=== PATIENT | female | born 1945 | race Caucasian/White ===

== ENCOUNTER 2016-12-16 08:39 | Emergency (ER) | payer MEDICARE, BC ==
--- NOTE | ~2016-12-16 | CR126 ---
[facility] A Service of [facility] RADIOLOGY TEXT RESULTS PATIENT: LOBITO ROSENBAUM LOCATION: [facility] : 49 UNIT #: [id number] AGE: [address]: Austin Parker MD SEX: F ORDER DR: [id number] [facility] [address] [place], [place] [address] [id number] E MR#: [id number] Acc #: [id number] NAME: LOBITO ROSENBAUM : 1945 SEX: F STUDY DATE/TIME: 12/16/2016 10:33 UNIT: [facility] ROOM: STUDY DESCRIPTION: CR Foot Complete Min 3 View Lt Attending Physician: Austin Parker M.D. Ordering Physician: Austin Parker M.D. Primary Care Physician: Tori Sweeney M.D. MEDICAL IMAGING REPORT This report is preliminary unless electronic signature is present EXAM Left foot 3 views and 12/16/2016 10:33 hours HISTORY A 71-year-old woman complaining of foot pain in the fourth and fifth toes since last night. Patient ran into an exercise machine with her left foot COMPARISON None. FINDINGS AP, lateral and oblique views demonstrate overall normal bone density. There is an area of lucency in the proximal medial aspect of the proximal phalanx of the fifth toe likely an acute nondisplaced fracture. There is adjacent edema. No definite fourth toe fracture. IMPRESSION There is a cortical lucency at the proximal aspect of the proximal phalanx of the fifth toe medially. This is likely an acute nondisplaced fracture. There is surrounding edema. No definite extension into the fifth metatarsal-phalangeal joint is demonstrated. Dictated by... Noa Banegas M.D. THIS IS AN ELECTRONICALLY VERIFIED REPORT Noa Banegas M.D. at 12/16/2016 2:21 PM Rupa TD: 12/16/2016 13:38 [facility] A Service [facility] RADIOLOGY TEXT RESULTS PATIENT: LOBITO ROSENBAUM LOCATION: [facility] #: [id number] : 49 UNIT #: [id number] AGE: [address]: Austin Parker MD SEX: F ORDER DR: GABRIELLA #: [id number] MEDICAL IMAGING REPORT Page 1 of 1 COPY
[~2016-12-16 08:39] MED LIST: ALLEGRA ALLERG180 MG PO; CEFACLOR; CEFTIN500 MG; CLARITIN5 MG; EX-LAX15 MG PO; FLONASE 0.05% N16 G1; LEVOFLOXACIN500 MG PO; LISINOPRIL20 MG PO; MELADOX3 MG; MELATONIN3 M1 PO; OTC SLEEP AID; PHENERGAN25 MG; TYLENOL #3 PO; UNISOM25 M1; VALSARTAN160 MG PO; ZESTRIL10 M2; ZOFRAN PO; [UNRECOGNIZED DRUG - OTHER]
[2016-12-16] MEDS ORDERED: CIPRO PO (12:41)
== END 2016-12-16 12:57 | disposition home or self-care (01) ==
LOC: CED 08:39 → CFTX 10:19 → CED 10:19
DX: S92.515A Nondisplaced fracture of proximal phalanx of left lesser toe(s), initial encounter for closed fracture (principal); L02.612 Cutaneous abscess of left foot; I10 Essential (primary) hypertension; X58.XXXA Exposure to other specified factors, initial encounter; Y92.009 Unspecified place in unspecified non-institutional (private) residence as the place of occurrence of the external cause
CPT/HCPCS: 73630; 99283